=== PATIENT | male | born 1960 | race Caucasian/White ===

== ENCOUNTER 2020-06-20 17:56 | Emergency (ER) | payer MEDICAID, SELFPAY ==
[2020-06-20 18:03] VITALS: BP 149/94; PULSE 99; RESP 18; O2SAT 97; BMI 24.3
--- NOTE | 2020-06-20 18:18 | XR_ITS ---
PROCEDURE: XR CHEST PORTABLE CLINICAL HISTORY: right anterior rib pain Smoker COMPARISON: No exams were available for comparison FINDINGS: The cardiomediastinal silhouette and pulmonary vascularity are within normal limits. Mild prominence of the left hilum possibly vascular. COPD. Nodular opacity is present in left suprahilar region may be due to calcified granuloma. Stability may be confirmed follow-up. No acute bony abnormalities. IMPRESSION: COPD. No acute Possible granuloma left upper lobe. Mild prominence of the left hilum possibly vascular. Suggest follow-up to confirm stability Dictated by: Sumanth Lim MD 06/20/2020 22:06 Sumanth Lim MD in [place] 06/20/2020 22:06
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
[2020-06-20 18:52] VITALS: BP 149/94; PULSE 99; RESP 18; TEMP -17.7; TEMP 0; O2SAT 97
== END 2020-06-20 18:53 ==
LOC: ER 18:40
PROVIDERS: Emergency Provider Emergency Medicine
DX: S20.211A Contusion of right front wall of thorax, initial encounter (principal); W18.39XA Other fall on same level, initial encounter; Y93.89 Activity, other specified; Y92.89 Other specified places as the place of occurrence of the external cause
CPT/HCPCS: 71045; 99283